=== PATIENT | male | born 1980 | race African-American/Black ===

== ENCOUNTER 2018-01-23 12:23 | Emergency (ER) | payer SELFPAY ==
[~2018-01-23] VITALS: Ht 180.3 cm; Wt 104.3 kg
[2018-01-23 13:56] LABS: Basophils # (auto) 0 uL; Basophils % (auto) 0.4 % (0.0-2.0); Eosinophils # (auto) 0.1 uL; Eosinophils % (auto) 1.9 % (0.0-7.0); Hematocrit 49.7 % (41.0-53.0); Hemoglobin 17.1 g/dL (13.5-17.5); Lymphocytes # (auto) 1.5 uL; Lymphocytes % (auto) 21.9 % (10.0-50.0); Mean Corpuscular Hemoglobin 31.9 pg (28.0-32.0); Mean Corpuscular Hgb Conc. 34.4 g/dL (32.0-36.0); Monocytes # (auto) 0.6 uL; Monocytes % (auto) 8.2 % (0.0-12.0); Neutrophils # (auto) 4.8 uL; Neutrophils % (auto) 67.6 % (37.0-80.0); Nucleated Red Blood Cells % 0.1 %; Platelet Count (auto) 214 10^3/uL (140-450); Red Blood Cells 5.35 10^6/uL (4.5-5.90); Red Cell Distribution Width 13.6 % (11.8-14.3)
[2018-01-23 14:17] LABS: Alanine Aminotransferase 53 U/L (16-61); Alkaline Phosphatase 79 U/L (45-117); Anion Gap 10 (5-15); Aspartate Aminotransferase 31 U/L (15-37); Bilirubin, Total 0.4 mg/dL (0.2-1.0); Blood Urea Nitrogen 5 mg/dL (7-18); Calcium 9.2 mg/dL (8.5-10.1); Carbon Dioxide 27 mmol/L (21-32); Chloride 104 mmol/L (98-107); GFR African American 131 mL/min; GFR Non-African American 108 mL/min; Glucose 124 mg/dL (74-106); Potassium 3.8 mmol/L (3.5-5.1); Sodium 141 mmol/L (136-145); Total Protein 8.3 g/dL (6.4-8.2)
[2018-01-23] MEDS: ASPirin 81 mg TAB PO ONE (14:44)
[2018-01-23] MEDS: NITROGLYCERIN 0.4 MG SL TAB SL ONE (14:44)
[2018-01-23] MEDS: ONDANSETRON ODT 4 MG TAB PO ONE (14:57)
[2018-01-23 15:06] VITALS: BP 128/84
== END 2018-01-23 15:12 | disposition home or self-care (01) ==
LOC: ER 12:30
DX: R07.89 Other chest pain (principal); R51 Headache; R61 Generalized hyperhidrosis; F17.210 Nicotine dependence, cigarettes, uncomplicated
CPT/HCPCS: 36415; 71046; 80053; 84484; 85025; 99285; Q0162; 93005

== ENCOUNTER 2019-08-24 23:35 | Emergency (ER) | payer SELFPAY ==
[~2019-08-24] VITALS: Ht 177.8 cm; Wt 106.6 kg
[2019-08-24 23:59] LABS: Basophils # (auto) 0.1 uL; Basophils % (auto) 0.8 % (0.0-2.0); Eosinophils # (auto) 0.4 uL; Lymphocytes # (auto) 1.8 uL; Mean Corpuscular Hemoglobin 31.9 pg (28.0-32.0); Mean Corpuscular Volume 93.8 fL (80.0-100.0); Monocytes # (auto) 0.8 uL; Monocytes % (auto) 9.5 % (0.0-12.0); Neutrophils # (auto) 5.7 uL; Neutrophils % (auto) 64.7 % (37.0-80.0); Nucleated Red Blood Cells % 0.1 %; Platelet Count (auto) 218 10^3/uL (140-450); Red Blood Cells 5.33 10^6/uL (4.5-5.90); Red Cell Distribution Width 13.8 % (11.8-14.3); White Blood Cell 8.8 10^3/uL (4.4-10.8)
[2019-08-25 00:22] LABS: Alanine Aminotransferase 71 U/L (16-61); Albumin 3.7 g/dL (3.4-5.0); Anion Gap 9 (5-15); Aspartate Aminotransferase 33 U/L (15-37); BUN/Creatinine Ratio 8.6; Blood Urea Nitrogen 8 mg/dL (7-18); Calcium 8.9 mg/dL (8.5-10.1); Carbon Dioxide 26 mmol/L (21-32); Chloride 104 mmol/L (98-107); GFR African American 115 mL/min; GFR Non-African American 95 mL/min; Glucose 98 mg/dL (74-106); Potassium 3.9 mmol/L (3.5-5.1); Sodium 139 mmol/L (136-145)
[2019-08-25 00:32] LABS: Alkaline Phosphatase 88 U/L (45-117); Bilirubin, Total 0.5 mg/dL (0.2-1.0); Total Protein 8.2 g/dL (6.4-8.2)
[2019-08-25] MEDS: ASPirin 325 MG TAB PO ONE (04:51)
[2019-08-25 05:21] VITALS: BP 139/86
== END 2019-08-25 05:31 | disposition home or self-care (01) ==
LOC: ER 23:38
DX: R07.89 Other chest pain (principal); F41.9 Anxiety disorder, unspecified; R51 Headache; F17.210 Nicotine dependence, cigarettes, uncomplicated
CPT/HCPCS: 36415; 71045; 80053; 83880; 84484; 85025; 85610; 85730; 93005